=== PATIENT | female | born 1960 | race Caucasian/White ===

== ENCOUNTER → 2021-03-06 | Outpatient (CLI) | payer OTHER ==
--- NOTE | 2021-03-18 15:04 | RAD ---
BILATERAL DIGITAL SCREENING 2-D AND 3-D MAMMOGRAM INDICATION: Routine screening. COMPARISON: None available at this time. Interpretation was made using CAD. FINDINGS: Breast Density: The breasts are heterogeneously dense, which may obscure small masses. RIGHT BREAST: There is an asymmetry in the lower outer quadrant of the right breast, 4 cm lateral to the nipple line in the anterior depth of the breast. This is only seen on the cc view. No suspicious calcifications or areas of distortion are seen. LEFT BREAST: There is an oval circumscribed 1.4 cm mass in the upper outer left breast near the 2:00 location, 3 cm lateral to the nipple line. Within the anterior to middle depth of the breast. There is a 1.2 cm oval mass in the lower inner left breast that is best seen on the cc view, 2 cm med ial to the nipple line in the anterior depth of the breast. There are no suspicious calcifications or areas of distortion. IMPRESSION: 1. Comparison to the previous outside exams is recommended. If these are unavailable, patient should return for a diagnostic right mammogram and a left breast ul trasound. ASSESSMENT: BI-RADS 0. Incomplete assessment. Comparison to previous outside exams is recommended. RECOMMENDATION: Comparison is recommended The facility will notify the patient of the results via mail. Patient information will be entered int o the mammography reminder system with a target recall date for the next mammogram. A reminder letter will be generated by the facility. Electronically signed by: Jennifer Malagon MD (03/18/2021 3:01 PM) [id number]
== END ==
LOC: MAMMO 09:14
PROVIDERS: ATTEND Family Medicine
DX: Z12.31 Encounter for screening mammogram for malignant neoplasm of breast (principal); N63.21 Unspecified lump in the left breast, upper outer quadrant
CPT/HCPCS: 77063; 77067

== ENCOUNTER → 2021-04-09 | Outpatient (CLI) | payer OTHER ==
--- NOTE | 2021-04-10 11:16 | RAD ---
EXAMINATION: MG DIAGNOSTICUNILAT MAMMO, US BREAST BILAT History: Recalled from screening mammogram for bilateral nodules/asymmetries Comparison: Screening mammogram 03/06/2021. Technique: Diagnostic right breast mammogram with spot compression CC and full-field ML views. CAD w as utilized. Right breast ultrasound was obtained in the area of concern in the lower outer right henrry ast. Left breast ultrasound was obtained in the area of concern at 2:00 3 cm from nipple and in the l ower inner left breast. Breast Tissue Density B : There are scattered areas of fibroglandular density. The asymmetry in the right breast persist on spot compression cc view but has no definite correlation on the ML view. Ultrasound of the lower inner right breast demonstrates normal fibroglandular tissue. There is no mas s or cysts. There prominent ducts in the retroareolar region. Ultrasound of the left breast demonstrates a 1.1 x 0.8 x 0.5 cm mass at 2:00 3 cm from the nipple. Th e mass is heterogeneous and isoechoic with ill-defined margins. This is parallel in orientation. No p osterior acoustic shadowing. There is no cyst or mass in the central left breast at 6-8 o'clock in th e area of concern on screening mammogram. IMPRESSION: 1. 1.1 cm solid mass at 2:00, 3 cm from the nipple in the left breast. Recommend ultrasound-guided bi opsy of left breast mass. 2. No sonographic correlation with the suspected mass at in the lower inner left breast or the asymme try in the outer right breast. Further management of these findings should be based on biopsy results of the left breast mass at 2:00. It that biopsy is negative, six-month follow-up diagnostic bilatera l mammogram is recommended with possible ultrasound if needed. BI-RADS Category 4: Suspicious. Recommendation: Ultrasound-guided biopsy of left breast mass at 2:00, 3 cm the nipple. Recommendation were discussed by Dr. Dixon with the breast navigatorKassandra for the [facility] at 11:10 AM on 04/10/2021. Electronically signed by: Pam Dixon MD (04/10/2021 11:14 AM) [id number]
== END ==
LOC: MAMMO 14:12
PROVIDERS: ATTEND Family Medicine
DX: N63.21 Unspecified lump in the left breast, upper outer quadrant (principal)
CPT/HCPCS: 77065; 76641-50